=== PATIENT | female | born 1970 | race Two or more races ===

== ENCOUNTER 2025-07-07 19:24 | Inpatient (IN) | payer MEDICAID, OTHER ==
[~2025-07-07] VITALS: Ht 154.9 cm; Wt 47.2 kg
[2025-07-07] MEDS ORDERED: ONDANSETRON HCL/PF 4 MG/2 ML VIAL ONE (19:52)
[2025-07-07] MEDS: ONDANSETRON HCL/PF 4 MG/2 ML VIAL IVP ONE (19:54)
[2025-07-07 20:17] LABS: PLATELET COUNT (AUTO) 342 K/uL (150-450); RED BLOOD CELL COUNT(AUTO) 3.98 MIL/uL (4.0-5.2); RED CELL DISTRIBUTION WIDTH 13.5 % (11.5-15.0); WHITE BLOOD COUNT (AUTO) 6.3 K/uL (4.3-11.0)
[2025-07-07 20:27] LABS: APPEARANCE,URINE CLOUDY (CLEAR); BLOOD, URINE 3+ Ery/uL (NEGATIVE); LEUKOCYTE ESTERASE ,URINE 3+ (NEGATIVE); NITRITE, URINE NEGATIVE (NEGATIVE); UGLUCOSE NEGATIVE (NEGATIVE)
[2025-07-07 20:40] LABS: CALCIUM, SERUM 9.1 mg/dL (8.5-10.1); CREATININE 0.9 mg/dL (0.6-1.3); SODIUM SERUM 133 mmol/L (136-145); UREA NITROGEN, BLOOD 30 mg/dL (7-18)
[2025-07-07 20:45] LABS: ADD URINE CULTURE YES
[2025-07-07 20:46] LABS: SQUAMOUS EPITHELIAL CELL,UR 0-2 /HPF (None Seen); TRIPLE PHOSPHATE CRYSTAL,UR Few /HPF (None Seen)
[2025-07-07 20:47] LABS: ASPARTATE AMINOTRANSFERASE 21 U/L (15-37); TOTAL PROTEIN, SERUM 8.0 g/dL (6.4-8.2)
[2025-07-07] MEDS ORDERED: PIPERACI/TAZO 3.375GM/D5W 50ML PB IV ONE (21:23)
[2025-07-07] MEDS: IV NS 0.9% 1,000 ML BAG IV ONE (21:27)
[2025-07-07] MEDS: PIPERACILLIN /TAZOBACTAM 3.375 G in IV D5W 50 ML IV ONE (21:31)
[2025-07-07] MEDS ORDERED: MAGNESIUM HYDROXIDE 30 ML UDC PO PRN (22:00)
[2025-07-07] MEDS ORDERED: DOSING PER PHARMACY-ZOSYN IV 1 EA EA XX PRN (22:00)
[2025-07-07] MEDS ORDERED: MAG HYDROX/AL HYDROX/SIMETH 30 ML UDC PO PRN (22:00)
[2025-07-07] MEDS: hydrALAZINE HCL IV 20 MG VIAL IV ONE (22:03)
[2025-07-07 23:00] VITALS: BP 197/108; TEMP 97.9; O2SAT 100
[2025-07-08] MEDS ORDERED: PIPERACI/TAZO 3.375GM/D5W 50ML PB IV ONE (00:05)
[2025-07-08] MEDS: IV NS 0.9% 1,000 ML IV PRN (00:48)
[2025-07-08 01:04] VITALS: BP 150/88
[2025-07-08] MEDS: ZOSYN IVPB 3.375 G in IV D5W 50ml IV ONE (03:13)
[2025-07-08 04:30] VITALS: BP 134/65; O2SAT 97
[2025-07-08 06:46] LABS: PLATELET COUNT (AUTO) 291 K/uL (150-450); RED BLOOD CELL COUNT(AUTO) 3.52 MIL/uL (4.0-5.2); RED CELL DISTRIBUTION WIDTH 13.5 % (11.5-15.0); WHITE BLOOD COUNT (AUTO) 5.2 K/uL (4.3-11.0)
[2025-07-08 07:00] LABS: LDL 83.0 mg/dL (0-99)
[2025-07-08 07:09] LABS: ASPARTATE AMINOTRANSFERASE 20.0 U/L (15-37); CALCIUM, SERUM 8.1 mg/dL (8.5-10.1); CREATININE 1.1 mg/dL (0.6-1.3); PHOSPHORUS 3.7 mg/dL (2.5-4.9); SODIUM SERUM 137.0 mmol/L (136-145); TOTAL PROTEIN, SERUM 6.6 g/dL (6.4-8.2); UREA NITROGEN, BLOOD 23.0 mg/dL (7-18)
[2025-07-08 07:31] VITALS: BP 150/85
[2025-07-08] MEDS: PANTOPRAZOLE 40 MG TABLET.DR PO SCH (08:16)
[2025-07-08] MEDS: ZOSYN IVPB 3.375 G in IV D5W 50ml IV SCH (08:16)
[2025-07-08] MEDS ORDERED: SEMA0.25 SQ (08:27)
[2025-07-08 08:38] VITALS: BP 149/87; TEMP 98.1; O2SAT 100
[2025-07-08] MEDS ORDERED: DEXTROSE 50%-WATER 50 ML DISP.SYRIN IV PRN (09:00)
[2025-07-08] MEDS ORDERED: CT SWABBABLE VALVE TRANS SET 1 EA INFUS.SET MC ONE (09:40)
[2025-07-08] MEDS ORDERED: IOHEXOL-300 100 ML VIAL IV ONE (09:40)
[2025-07-08] MEDS ORDERED: IV NS 0.9% 250 ML IV ONE (09:40)
[2025-07-08 10:22] LABS: PREGNANCY TEST URINE QUAL NEGATIVE (NEGATIVE)
[2025-07-08] MEDS: BLOOD SUGAR DIAGNOSTIC 1 EACH STRIP IN SCH (12:00)
[2025-07-08] MEDS: INSULIN REGULAR, HUMAN 100 UNIT/ML 3 ML VIAL SQ PRN (12:34)
[2025-07-08 16:02] VITALS: BP 169/90; TEMP 98; O2SAT 100
[2025-07-08] MEDS: hydrALAZINE HCL IV 20 MG VIAL IV PRN (20:44)
[2025-07-09 06:39] LABS: PLATELET COUNT (AUTO) 287 K/uL (150-450); RED BLOOD CELL COUNT(AUTO) 3.56 MIL/uL (4.0-5.2); RED CELL DISTRIBUTION WIDTH 13.4 % (11.5-15.0); WHITE BLOOD COUNT (AUTO) 4.7 K/uL (4.3-11.0)
[2025-07-09 06:59] LABS: CALCIUM, SERUM 8.5 mg/dL (8.5-10.1); CREATININE 1.0 mg/dL (0.6-1.3); PHOSPHORUS 3.6 mg/dL (2.5-4.9); SODIUM SERUM 136.0 mmol/L (136-145); UREA NITROGEN, BLOOD 13.0 mg/dL (7-18)
[2025-07-09 07:30] VITALS: BP 174/100; TEMP 98.2; O2SAT 100
[2025-07-09 08:47] VITALS: BP 140/85
[2025-07-09] MEDS: POTASSIUM CHLORIDE 20 MEQ TAB.PRT.SR PO SCH (10:17)
[2025-07-09] MEDS: MAGNESIUM OXIDE 400 MG TABLET PO ONE (10:23)
[2025-07-09] MEDS ORDERED: CLOP75TA15 PO (15:56)
[2025-07-09] MEDS ORDERED: BUSP7.5T7 PO (15:56)
[2025-07-09] MEDS ORDERED: FERR-68 PO (15:56)
[2025-07-09] MEDS ORDERED: ESCI10TA PO (15:56)
[2025-07-09] MEDS ORDERED: ASPI-1169 PO (15:56)
[2025-07-09 16:00] VITALS: BP 165/90; TEMP 98.1; O2SAT 100
[2025-07-09 17:15] VITALS: BP 148/86
[2025-07-09 20:15] VITALS: TEMP 97.9; O2SAT 100
[2025-07-09 21:00] VITALS: BP 140/80
[2025-07-10 08:00] VITALS: BP 173/85; TEMP 97.9; O2SAT 99
[2025-07-10] MEDS: ASPIRIN 81 MG TAB.CHEW PO SCH (08:27)
[2025-07-10] MEDS: ESCITALOPRAM OXALATE (10 MG) 10 MG TABLET PO SCH (08:27)
[2025-07-10] MEDS: FERROUS SULFATE (325 MG) 325 MG/TAB TABLET PO SCH (08:27)
[2025-07-10] MEDS: CLOPIDOGREL BISULFATE 75 MG TABLET PO SCH (08:27)
[2025-07-10 16:04] VITALS: BP 191/98; TEMP 97.9; O2SAT 97
[2025-07-10] MEDS: PIPERACILLIN /TAZOBACTAM 3.375 G in IV D5W 100 ML IV SCH (16:37)
[2025-07-10 18:36] VITALS: BP 127/70; TEMP 98.5; O2SAT 99
[2025-07-10 20:00] VITALS: BP 134/77; TEMP 97.9; O2SAT 99
[2025-07-10] MEDS: MEROPENEM 1 G in IV NS 0.9% 100 ML IV SCH (20:02)
[2025-07-11] MEDS: ACETAMINOPHEN 325 MG TABLET PO PRN (06:45)
[2025-07-11 07:00] VITALS: BP_SYST 137; BP_SYST 172; BP_DIAS 81; BP_DIAS 97; TEMP 97.4; TEMP 97.9; O2SAT 97; O2SAT 99
[2025-07-11 07:08] LABS: CALCIUM, SERUM 8.2 mg/dL (8.5-10.1); CREATININE 1.2 mg/dL (0.6-1.3); PHOSPHORUS 3.6 mg/dL (2.5-4.9); SODIUM SERUM 138.0 mmol/L (136-145); UREA NITROGEN, BLOOD 10.0 mg/dL (7-18)
[2025-07-11 07:41] LABS: PLATELET COUNT (AUTO) 334 K/uL (150-450); RED BLOOD CELL COUNT(AUTO) 3.70 MIL/uL (4.0-5.2); RED CELL DISTRIBUTION WIDTH 13.3 % (11.5-15.0); WHITE BLOOD COUNT (AUTO) 5.9 K/uL (4.3-11.0)
[2025-07-11] MEDS: POTASSIUM CHLORIDE 20 MEQ TAB.PRT.SR PO SCH (10:12)
[2025-07-11] MEDS: MAGNESIUM OXIDE 400 MG TABLET PO ONE (10:13)
[2025-07-11 16:00] VITALS: BP 168/100; TEMP 98.4; O2SAT 100
[2025-07-11 18:15] LABS: HIV-1/2 ANTIBODY NON REACTIVE (NONREACTIVE)
[2025-07-11 22:10] VITALS: BP 110/57
[2025-07-12 08:50] VITALS: BP 178/92; TEMP 98.6; O2SAT 97
[2025-07-12] MEDS ORDERED: ERTA1VIA4 IJ (10:36)
[2025-07-12 16:22] VITALS: TEMP 98.6; O2SAT 100
[2025-07-12] MEDS: MEROPENEM 1 G in IV NS 0.9% 100 ML IV SCH (17:33)
[2025-07-12 18:28] LABS: AMPHETAMINE, URINE NEGATIVE (NEGATIVE); BARBITURATE, URINE NEGATIVE (NEGATIVE); BENZODIAZEPINE, URINE NEGATIVE (NEGATIVE); CANNABINOID, URINE NEGATIVE (NEGATIVE); COCCAINE, URINE NEGATIVE (NEGATIVE); OPIATE, URINE NEGATIVE (NEGATIVE)
[2025-07-12 20:00] VITALS: BP 146/71; TEMP 99; O2SAT 99
[2025-07-13 06:38] LABS: PLATELET COUNT (AUTO) 357 K/uL (150-450); RED BLOOD CELL COUNT(AUTO) 3.80 MIL/uL (4.0-5.2); RED CELL DISTRIBUTION WIDTH 13.3 % (11.5-15.0); WHITE BLOOD COUNT (AUTO) 5.9 K/uL (4.3-11.0)
[2025-07-13 06:59] LABS: CALCIUM, SERUM 8.3 mg/dL (8.5-10.1); CREATININE 0.8 mg/dL (0.6-1.3); SODIUM SERUM 136.0 mmol/L (136-145); UREA NITROGEN, BLOOD 14.0 mg/dL (7-18)
[2025-07-13 14:59] VITALS: BP 139/64; TEMP 98.2; O2SAT 100
[2025-07-13 17:05] VITALS: BP 133/64
[2025-07-13 20:00] VITALS: BP 140/69; TEMP 98.1; O2SAT 99
[2025-07-13] MEDS: TEMAZEPAM 7.5 MG CAPSULE PO PRN (21:40)
[2025-07-14 08:00] VITALS: BP 185/77; TEMP 98.2; O2SAT 99
[2025-07-14 10:00] VITALS: BP 119/68
[2025-07-14] MEDS: AMLODIPINE BESYLATE 5 MG TABLET PO SCH (10:43)
[2025-07-14 16:00] VITALS: BP 157/84; TEMP 98.4; O2SAT 99
[2025-07-14 20:00] VITALS: BP 150/82; TEMP 98.1; O2SAT 99
[2025-07-15 08:00] VITALS: BP 152/83; TEMP 98.1; O2SAT 100
[2025-07-15 16:00] VITALS: BP 101/54; TEMP 98; O2SAT 98
[2025-07-15 20:00] VITALS: BP 152/78; TEMP 98.4; O2SAT 98
[2025-07-16] MEDS: ONDANSETRON HCL/PF 4 MG/2 ML VIAL IVP PRN ×2 (06:06→12:15)
[2025-07-16 08:00] VITALS: BP 190/104; TEMP 98.2; O2SAT 99
[2025-07-16 16:00] VITALS: BP 193/95; TEMP 98.1; O2SAT 94
[2025-07-16 16:45] VITALS: BP 177/94
[2025-07-16 20:00] VITALS: BP_SYST 177; BP_SYST 94; BP_DIAS 100; BP_DIAS 54; TEMP 98.8; TEMP 99.3; O2SAT 96; O2SAT 98
[2025-07-17] VITALS (7 sets, daily range): BP systolic 116–162; BP diastolic 72–93; TEMP 98.4–98.8; O2SAT 97–99
[2025-07-18 06:34] LABS: PLATELET COUNT (AUTO) 363 K/uL (150-450); RED BLOOD CELL COUNT(AUTO) 3.55 MIL/uL (4.0-5.2); RED CELL DISTRIBUTION WIDTH 13.5 % (11.5-15.0); WHITE BLOOD COUNT (AUTO) 4.9 K/uL (4.3-11.0)
[2025-07-18 06:42] LABS: CALCIUM, SERUM 8.1 mg/dL (8.5-10.1); CREATININE 0.8 mg/dL (0.6-1.3); SODIUM SERUM 136.0 mmol/L (136-145); UREA NITROGEN, BLOOD 14.0 mg/dL (7-18)
[2025-07-18 08:00] VITALS: BP 123/69; TEMP 98.1; O2SAT 98
[2025-07-18] MEDS: POTASSIUM CHLORIDE 20 MEQ TAB.PRT.SR PO ONE (09:08)
[2025-07-18 16:04] VITALS: BP 128/75; TEMP 98.4
[2025-07-18 20:00] VITALS: BP 129/71; TEMP 97.7; O2SAT 98
[2025-07-19 08:00] VITALS: BP 162/89; TEMP 97.9; O2SAT 100
[2025-07-19 08:31] VITALS: BP 162/89
== END 2025-07-19 12:20 | disposition home or self-care (01) | DRG 199 ==
LOC: ER 19:27 → EDBD 21:29 → MED 21:29
PROVIDERS: ADMIT Nurse Practitioner Family; ATTEND Internal Medicine
DX: I16.0 Hypertensive urgency (principal); N12 Tubulo-interstitial nephritis, not specified as acute or chronic; E44.1 Mild protein-calorie malnutrition; R78.81 Bacteremia; E88.09 Other disorders of plasma-protein metabolism, not elsewhere classified; E87.1 Hypo-osmolality and hyponatremia; Z89.612 Acquired absence of left leg above knee; N13.6 Pyonephrosis; B96.20 Unspecified Escherichia coli [E. coli] as the cause of diseases classified elsewhere; E11.9 Type 2 diabetes mellitus without complications; E86.0 Dehydration; B96.89 Other specified bacterial agents as the cause of diseases classified elsewhere; I10 Essential (primary) hypertension; Z20.822 Contact with and (suspected) exposure to COVID-19; R33.9 Retention of urine, unspecified; Z16.12 Extended spectrum beta lactamase (ESBL) resistance; Z16.24 Resistance to multiple antibiotics; R79.89 Other specified abnormal findings of blood chemistry
CPT/HCPCS: 36415; 71045-TC; 76770-TC; 80048-TC; 80061-TC; 80076-TC; 81001; 82962-TC; 83605-TC; 83690-TC; 83735-TC; 84100-TC; 84484-TC; 84703-TC; 85025-TC; 86803; 87040-TC; 87081-TC; 87086-TC; 87186-TC; 87806; 93307-TC; A4223; G0378; J0360; J1815; J2185; J2405; J2543; J3490; J7030; J7050; J7060; Q9967